=== PATIENT | male | born 1955 | race African-American/Black ===

== ENCOUNTER 2020-05-24 12:59 | Emergency (ER) | payer MEDICARE, BC, SELFPAY ==
[2020-05-24] VITALS (8 sets, daily range): BP systolic 116–164; BP diastolic 63–96; PULSE 68–93; RESP 16–20; TEMP 36.5–36.7; O2SAT 90–97; BMI 27.1
--- NOTE | 2020-05-24 13:03 | HMH.EDGENADL ---
ED Disposition Clinical Impression: Altered mental status Qualifiers: Altered mental status type: unspecified Qualified Code(s): R41.82 - Altered mental status, unspecified Disposition: Xfer Other Condition on Discharge: Good Additional Instructions: Patient is to continue taking medications as prescribed. Immediately return back to the emergency department if recurrent altered mental status, fever/chills, or other new concerning symptoms. Referrals: Roger Trejo MD [Primary Care Provider] - - Critical Care Critical Care Time: No Attestation: On , the high probability of a clinically significant, sudden or life threatening deterioration of the following system(s) required my full and direct attention, intervention and personal management. The time I documented below is in addition to time spent performing reported procedures but includes the following listed in this critical care notation. Medical Decision Making - Medical Records Medical records reviewed: Yes: I reviewed the patient's medical records. - Yunier Inquiry Pt receiving controlled substance: No Vital Signs: 05/24/20 13:03 05/24/20 13:29 05/24/20 13:59 Temperature 97.7 F Temperature Source Oral Pulse Rate Pulse Rate [Radial] 76 87 84 Respiratory Rate 18 16 20 Blood Pressure Blood Pressure [Right Arm] 116/64 117/63 161/81 H Blood Pressure Mean [Right Arm] 81 81 107 Blood Pressure Source Blood Pressure Source [Right Arm] Automatic Cuff Automatic Cuff Automatic Cuff Blood Pressure Position Blood Pressure Position [Right Arm] Sitting Sitting Supine 02 Sat by Pulse Oximetry 96 96 96 Oxygen Delivery Method Room Air 05/24/20 14:32 05/24/20 15:48 05/24/20 16:01 Temperature Temperature Source Pulse Rate Pulse Rate [Radial] 88 68 84 Respiratory Rate 18 18 20 Blood Pressure Blood Pressure [Right Arm] 152/65 H 164/89 H 141/75 H Blood Pressure Mean [Right Arm] 94 114 97 Blood Pressure Source Blood Pressure Source [Right Arm] Automatic Cuff Automatic Cuff Automatic Cuff Blood Pressure Position Blood Pressure Position [Right Arm] Sitting Sitting Sitting 02 Sat by Pulse Oximetry 90 L 96 97 Oxygen Delivery Method 05/24/20 16:38 05/24/20 16:39 Temperature 98.1 F Temperature Source Oral Pulse Rate 93 H Pulse Rate [Radial] 93 H Respiratory Rate 18 18 Blood Pressure 160/96 H Blood Pressure [Right Arm] 160/96 H Blood Pressure Mean [Right Arm] 117 Blood Pressure Source Automatic Cuff Blood Pressure Source [Right Arm] Automatic Cuff Blood Pressure Position Sitting Blood Pressure Position [Right Arm] Sitting 02 Sat by Pulse Oximetry 93 L Oxygen Delivery Method Room Air - Lab Data Lab Results 05/24/20 13:16: WBC 6.5, RBC 4.93, Hgb 13.6 L, Hct 42.2, MCV 85.6, MCH 27.6, MCHC 32.2, RDW 14.5, Plt Count 186, MPV 8.1, Neut % (Auto) 40.6, Lymph % (Auto) 44.0, Eaton % (Auto) 8.5, Eos % (Auto) 6.0, Baso % (Auto) 0.9, Neut # (Auto) 2.7, Lymph # (Auto) 2.9, Eaton # (Auto) 0.6, Eos # (Auto) 0.4, Baso # (Auto) 0.1 05/24/20 13:16: Sodium 143, Potassium 3.9, Chloride 107, Carbon Dioxide 27, Anion Gap 12.9, BUN 16, Creatinine 1.30 H, Estimated Creat Clear 73, Estimated GFR 55 L, Est GFR ( Amer) 67, Glucose 114 H, Calcium 8.9, Total Bilirubin 0.4, AST 28, ALT 25, Alkaline Phosphatase 63, Total Protein 7.4, Albumin 4.2, Globulin 3.2, Albumin/Globulin Ratio 1.3 05/24/20 13:16: Troponin I < 0.01 05/24/20 14:30: Urine Color Yellow, Urine Appearance Clear, Urine pH 6.0, Ur Specific Lorimor 1.025, Urine Protein Trace, Urine Glucose (UA) Negative, Urine Ketones Negative, Urine Blood Negative, Urine Nitrate Negative, Urine Bilirubin Negative, Urine Urobilinogen 0.2, Ur Leukocyte Esterase Negative, Urine RBC None, Urine WBC None, Ur Squamous Epith Cells Occasional, Urine Bacteria None Result diagrams: 05/24/20 13:16 05/24/20 13:16 Orders (Tests/Meds): ORDERS Category Date Time Status Troponin I Q3H Lab 1
--- NOTE | 2020-05-24 13:15 | XR_ITS ---
PROCEDURE: XR CHEST PORTABLE CLINICAL HISTORY: weakness COMPARISON: CR XR CHEST 2V from 07/22/2019 FINDINGS: The cardiomediastinal silhouette and pulmonary vascularity are within normal limits. The lungs are clear without infiltrates, suspicious nodules, or pleural effusions. No acute bony abnormalities. IMPRESSION: No acute findings. Dictated by: Angel Howard MD 05/24/2020 14:48 Angel Howard MD in [facility] 05/24/2020 14:48
--- NOTE | 2020-05-24 13:19 | ECG_ITS ---
APPROVED REPORT Exam: Resting ECG HR:81 bpm ECG Measurements Heart Rate 81 AXES TX 216 P 78 QRSd 108 QRS 93 QT 382 T 88 QTc 443 Conclusion Sinus rhythm with 1st degree AV block Rightward axis Nonspecific T wave abnormality Abnormal ECG Electronically signed by : Garrett Bills, 05/24/2020 18:16:55
--- NOTE | 2020-05-24 13:20 | CT_ITS ---
PROCEDURE: CT HEAD/BRAIN WO CON CLINICAL INDICATION: weakness Syncope, dizziness, weakness, history of seizures COMPARISON: CT CT HEAD/BRAIN WO CON from 07/22/2019 TECHNIQUE: Axial images obtained. All CT scans at the facility use one or more dose reduction, viz: automated exposure control, ma/kV adjustment per patient size (including targeted exams where dose is matched to indication, i.e. head), or iterative reconstruction technique. FINDINGS: No midline shift, mass effect, intracranial hemorrhage, hydrocephalus, or extra-axial fluid collection is evident. No midline shift or mass effect. No acute intracranial hemorrhage. Stable small right subdural hygroma.There is generalized atrophy with hypoattenuation of the periventricular white matter consistent with microangiopathic changes. the calvarium has an unremarkable appearance. No mastoid effusion. There is mild mucosal thickening of the ethmoid sinuses. Old fracture of the floor of the orbit on the right. IMPRESSION: No change with no acute finding. Dictated by: Angel Howard MD 05/24/2020 14:40 Angel Howard MD in [facility] 05/24/2020 14:40
[2020-05-24 13:23] LABS: Basophils # 0.1 K/mm3 (0-0.2); Basophils % 0.9 % (0.1-2.0); Eosinophils # 0.4 K/mm3 (0.0-0.4); Hematocrit 42.2 % (42.0-52.0); Hemoglobin 13.6 g/dL (14.1-18.0); Lymphocytes # 2.9 K/mm3 (0.7-4.5); Mean Corpuscular HGB Conc 32.2 g/dL (31.8-35.4); Mean Corpuscular Hemoglobin 27.6 pg (27.0-31.2); Mean Corpuscular Volume 85.6 fl (80-94); Mean Platelet Volume 8.1 fl (7.4-10.4); Monocytes # 0.6 K/mm3 (0.1-1.0); Monocytes % 8.5 % (1.7-9.3); Neutrophils # 2.7 K/mm3 (1.8-7.8); Neutrophils % 40.6 % (37.0-80.0); Platelet Count 186 K/mm3 (142-424); Red Blood Count 4.93 M/mm3 (4.60-6.20); Red Cell Distribution Width 14.5 % (11.5-17.5); White Blood Count 6.5 K/mm3 (4.8-10.8)
[2020-05-24 13:31] LABS: Alanine Aminotransferase 25 U/L (12-78); Albumin Level 4.2 g/dl (3.5-5.0); Albumin/Globulin Ratio 1.3 (1.1-1.8); Alkaline Phosphatase 63 U/L (38-126); Anion Gap 12.9 mEq/L (5-15); Aspartate Amino Transferase 28 U/L (17-59); Bilirubin,Total 0.4 mg/dl (0.2-1.3); Blood Urea Nitrogen 16 mg/dl (9-20); Calcium 8.9 mg/dl (8.4-10.2); Carbon Dioxide 27 mmol/L (22.0-30.0); Chloride 107 mmol/L (98-107); Creatinine Clearance Estimated 73 mL/min (50-200); Estimated Glomerular Filt Rate 55 ml/min (>60); GFR (African American) 67 ML/MIN (>60); Globulin 3.2 g/dL (1.3-3.2); Glucose 114 mg/dl (74-100); Potassium 3.9 mmoL/L (3.5-5.1); Sodium 143 mmol/L (136-145); Total Protein,Serum 7.4 g/dl (6.3-8.2)
[2020-05-24 13:45] LABS: Troponin I < 0.01 ng/ml (0.00-0.034)
[2020-05-24 14:40] LABS: Microscopic, Urine URINE MICROSCOPIC (MICROSCOPIC)
[2020-05-24 14:42] LABS: Appearance,Urine CLEAR (Clear); Bilirubin,Urine Negative (Negative); Blood, Urine Negative (Negative); Color,Urine YELLOW (Yellow); Glucose,Urine (UA) Negative (Negative); Ketones,Urine Negative (Negative); Leukocyte Esterase,Urine Negative (Negative); Nitrate,Urine Negative (Negative); Protein,Urine TRACE (Negative); Specific Gravity, Urine 1.025 (1.005-1.030); Urobilinogen,Urine 0.2 EU/dl (0.2)
[2020-05-24 14:49] LABS: Squamous Epithelial Cell,Urine Occasional #/hpf (0-5)
--- NOTE | 2020-05-24 16:37 | PC.NURSE ---
called [facility] for pt transport
[2020-05-24 17:42] LABS: Troponin I < 0.01 ng/ml (0.00-0.034)
== END 2020-05-24 17:01 | disposition other institution (70) ==
PROVIDERS: Emergency Provider Emergency Medicine; PCP Emergency Medicine
DX: R55 Syncope and collapse (principal); R41.82 Altered mental status, unspecified; F17.210 Nicotine dependence, cigarettes, uncomplicated
CPT/HCPCS: 36415; 70450; 71045; 80053; 81001; 84484; 85025; 93005; 99284

== ENCOUNTER 2022-02-12 09:31 | Emergency (ER) | payer MEDICARE, BC, SELFPAY ==
--- NOTE | 2022-02-12 09:36 | XR_ITS ---
FINAL REPORT CLINICAL HISTORY: cough COMPARISON: May 24, 2020 FINDINGS: A single portable view of the chest was obtained. The heart size and pulmonary vascularity are within normal limits. The mediastinum is within normal limits. There is new left base opacities which may represent atelectasis or pneumonia. There are moderate degenerative changes in the thoracic spine. IMPRESSION: New left base opacities, may represent atelectasis or pneumonia. Reviewed, Interpreted and Dictated by Miles Aguilar III, MD Transcribed by Lexus Licona Authenticated and [facility]
[2022-02-12 09:38] VITALS: BP 126/64; PULSE 82; RESP 17; TEMP 37; O2SAT 99; BMI 27.4
--- NOTE | 2022-02-12 09:38 | HMH.EDGENADL ---
Discharge Plan Disposition Patient Disposition: Home, Self-Care Condition: Good Prescriptions Prescriptions: No Action lorazepam [Ativan] 1 mg tablet 1 mg PO Q8H PRN (Reason: anxiety) Qty: 90 2RF levetiracetam 500 MG tablet 500 mg PO BID Referrals Follow up/Referrals: Roger Trejo MD [Staff Physician] - See instructions Activity Restrictions/Add. Instructions Additional Instructions/Restrictions: Follow up with your PCP. Your COVID-19 test was positive. Return if you have worsening shortness of breath or any other concerns. Clinical Impressions Clinical Impression: COVID-19 Cough Qualifiers: Cough type: acute Qualified Code(s): R05.1 - Acute cough Instructions Patient Instructions: Cough Discharge ED Provider: Shama Fraser Adult HPI General Chief complaint: Upper Respiratory Infection Stated complaint: cough Time Seen by Provider: 02/12/22 09:54 History of Present Illness HPI narrative: The patient is a 66 year old male with a history of seizures who presents with a dry non productive cough since yesterday. He states its the only thing bother him. He smokes 1 PPD. He denies chest pain, fever, sore throat, shortness of breath, headache, N/V/D or any other symptoms. he has not taken anything. Nothing makes it better or worse. No other complaints. Related Data Home Medications Medication Instructions Recorded Confirmed levetiracetam 500 mg tablet 500 mg PO BID seizure 05/24/20 05/24/20 Previous Rx's Medication Instructions Recorded lorazepam 1 mg tablet (Ativan) 1 mg PO Q8H PRN anxiety #90 tabs 10/01/20 Allergies Allergy/AdvReac Type Severity Reaction Status Date / Time No Known Allergies Allergy Verified 07/22/19 08:04 [facility] Social History Smoking Status: Current every day smoker tobacco type: cigarettes packs per day: 1 second hand exposure: Yes alcohol intake: never current occupational status: disabled Travel in the last 8 weeks: None ROS Obtained: Yes Systems reviewed as appropriate & no additional complaints except as documented Physical Exam General General appearance: alert and in no apparent distress Head Head exam: atraumatic and normocephalic Eye Eye exam: Present PERRL and EOMI ENT ENT exam: Present normal external ear exam Neck Neck exam: Present normal inspection Chest Chest inspection: Present symmetric chest wall rise; Absent tenderness Respiratory Respiratory exam: Present normal lung sounds bilaterally; Absent respiratory distress, wheezes, stridor or accessory muscle use Cardiovascular Cardiovascular exam: Present regular rate and normal rhythm Abdominal Exam Abdominal exam: Present soft; Absent distention exam: Present deferred Extremities Exam Extremities exam: Present normal inspection Neurological Exam Neurological exam: Present alert, oriented X3 and CN II-XII intact Psychiatric Psychiatric exam: Present normal affect and normal mood Skin Skin exam: Present warm and dry Medical Decision Making Yunier Inquiry Pt receiving controlled substance: No Vital Signs: 02/12/22 09:38 02/12/22 10:31 02/12/22 11:00 Temperature 98.6 F Temperature Source Oral Pulse Rate 83 65 Pulse Rate [Left Radial] 82 Respiratory Rate 17 18 18 Blood Pressure 121/60 117/57 L Blood Pressure [Right Arm] 126/64 Blood Pressure Mean 77 69 Blood Pressure Mean [Right Arm] 84 02 Sat by Pulse Oximetry 99 100 98 02/12/22 11:28 Temperature 97.9 F Temperature Source Oral Pulse Rate 65 Pulse Rate [Left Radial] Respiratory Rate 20 Blood Pressure 117/57 L Blood Pressure [Right Arm] Blood Pressure Mean Blood Pressure Mean [Right Arm] 02 Sat by Pulse Oximetry Lab Data Lab Results 02/12/22 09:30: SARS-CoV-2 (PCR) Detected A, Influenza A Untype (PCR) Not detected, Influenza Type B (PCR) Not detected Orders (Tests/Meds): ORDERS Maria Isabel
[2022-02-12 09:50] LABS: Influenza A, PCR Not Detected (NotDetected); Influenza B, PCR Not Detected (NotDetected)
[2022-02-12 10:21] LABS: Coronavirus 19, PCR Detected (NotDetected)
[2022-02-12 10:31] VITALS: BP 121/60; PULSE 83; RESP 18; O2SAT 100
[2022-02-12 11:00] VITALS: BP 117/57; PULSE 65; RESP 18; O2SAT 98
--- NOTE | 2022-02-12 11:08 | PC.NURSE ---
calling [facility] for pt pickup
--- NOTE | 2022-02-12 11:10 | PC.NURSE ---
[facility] employee stated she was sending someone to pick remover pt eta 5-10 min
--- NOTE | 2022-02-12 11:25 | PC.NURSE ---
pt irae her, pt vahid'd
[2022-02-12 11:28] VITALS: BP 117/57; PULSE 65; RESP 20; TEMP 36.6; O2SAT 98
== END 2022-02-12 11:30 | disposition home or self-care (01) ==
PROVIDERS: Emergency Provider Emergency Medicine
DX: U07.1 COVID-19 (principal); R06.9 Unspecified abnormalities of breathing; G40.909 Epilepsy, unspecified, not intractable, without status epilepticus; F17.210 Nicotine dependence, cigarettes, uncomplicated; Z79.899 Other long term (current) drug therapy
CPT/HCPCS: 71045; 99283; C9803; U0003; U0005